=== PATIENT | female | born 1945 | race Caucasian/White ===

== ENCOUNTER 2024-07-27 08:41 | Emergency (ER) | payer MEDICARE ==
[2024-07-27] MEDS ORDERED: Sodium Chloride 0.9% 10 ML Syringe FLUSH PRN (08:55)
[2024-07-27] MEDS: Aspirin 81 MG Tab.Chew PO ONE (09:07)
[2024-07-27 09:15] LABS: BASOPHILS PERCENT AUTO 0.5 % (0.2-1.5); EOSINOPHILS PERCENT AUTO 0.4 % (0.6-8.1); HEMATOCRIT 44.8 % (34.2-48.2); HEMOGLOBIN 15.3 g/dL (11.4-15.5); LYMPHOCYTES ABSOLUTE AUTO 2.4 x10-3/uL (1.0-4.4); LYMPHOCYTES PERCENT AUTO 25.4 % (18.4-52.1); MEAN CORPUSCULAR HEMOGLOBIN 31.8 pg (23.9-33.9); MEAN CORPUSCULAR HGB CONC 34.2 g/dL (31.9-34.8); MEAN CORPUSCULAR VOLUME 93.1 fL (76.7-100.5); MONOCYTES ABSOLUTE AUTO 0.5 x10-3/uL (0.3-1.0); MONOCYTES PERCENT AUTO 5.6 % (4.4-15.7); NEUTROPHILS ABSOLUTE AUTO 6.5 x10-3/uL (1.5-6.3); NEUTROPHILS PERCENT AUTO 68.1 % (30.8-76.2); PLATELET COUNT,PLT 422 x10(3)uL (151-488); RED BLOOD CELL COUNT 4.81 x10(6)uL (3.60-5.20); RED CELL DISTRIBUTION WIDTH 12.8 % (12.3-16.5); WHITE BLOOD CELL COUNT,WBC 9.6 x10-3/uL (3.0-10.3)
[2024-07-27 09:18] LABS: PROTHROMBIN TIME 10.4 sec (9.0-11.1)
[2024-07-27 09:21] LABS: A/G RATIO 1.1; ALANINE AMINOTRANSFERASE,ALT 21 U/L (12-36); ALKALINE PHOSPHATASE 78 IU/L (56-112); ASPARTATE AMNIOTRANSFERASE,AST 17 IU/L (5-25); BILIRUBIN TOTAL 0.9 mg/dL (0.1-1.3); BLOOD UREA NITROGEN,BUN 18 mg/dL (7-18); CALCIUM 10.2 mg/dL (8.6-10.2); CARBON DIOXIDE,CO2 30 mmol/L (21-32); CHLORIDE,CL 97 mmol/L (100-110); CREATININE 1.2 mg/dL (0.55-1.02); ESTIMATED GFR 47 mL/min (>60); GLUCOSE RANDOM 174 mg/dL (80-116); PROTEIN TOTAL,TP 7.8 g/dL (6.0-8.0); SODIUM,NA 140 mmol/L (135-145)
[2024-07-27 09:24] LABS: C-REACTIVE PROTEIN 1.34 mg/dL (<0.50)
[2024-07-27 09:25] LABS: POTASSIUM,K 2.6 mmol/L (3.5-5.3)
[2024-07-27 09:26] LABS: TROPONIN I 69.5 pg/mL (4.0-60.3)
[2024-07-27] MEDS ORDERED: Heparin Sodium/0.45% NaCl 500 ML IV SCH (09:28)
[2024-07-27] MEDS ORDERED: Potassium Chloride 20 MEQ Tab.ER PO ONE (09:30)
[2024-07-27] MEDS: Heparin Sodium 5,000 Units/ML Vial IVPUSH ONE (09:46)
[2024-07-27] MEDS: Heparin Sodium/0.45% NaCl 25,000 UNITS/500 ML BAG IV SCH (09:46)
[2024-07-27] MEDS: Potassium Chloride 20 MEQ in Premix Bag 1 BAG IV ONE (09:48)
== END 2024-07-27 10:44 ==
LOC: FB.ED 08:41
DX: E87.6 Hypokalemia (principal); I44.7 Left bundle-branch block, unspecified
CPT/HCPCS: 80053; 84484; 85025; 85610; 85730; 86140; 93005; 96365; 96368; 99285-25; A9270-GY; J1644; J3480